=== PATIENT | female | born 1980 | race Caucasian/White ===

== ENCOUNTER 2016-08-17 16:32 | Emergency (ER) | payer OTHER ==
[~2016-08-17] VITALS: Ht 152.4 cm; Wt 88.0 kg
[~2016-08-17 16:32] MED LIST: HYDR-5688 PO
[2016-08-17 16:37] VITALS: Ht 152.4 cm; Wt 88.0 kg
[2016-08-17] MEDS ORDERED: ONDANSETRON INJ 2 MG/ML 2 ML VIAL IV STA (17:04)
[2016-08-17] MEDS ORDERED: KETOROLAC TROMETHAMINE 30 MG/ML VIAL IV STA (17:04)
[2016-08-17] MEDS ORDERED: SODIUM CHLORIDE 0.9% 1000ML 1,000 ML IV STA (17:04)
--- NOTE | 2016-08-17 17:34 | DIAGNOSTIC IMAGING REPORT ---
CHEST 2 VIEWS ROUTINE HISTORY: Cough, chest pain, dyspnea COMPARISON: Chest 01/09/2015. FINDINGS: The lungs are clear. Cardiac silhouette is normal in size. No pleural effusions. No pneumothorax. 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 IMPRESSION: No acute process. Electronically signed by: Shade Cordon M.D. 08/17/2016 5:33 PM Dictated Date/Time: 08/17/2016 5:32 PM
[2016-08-17] MEDS ORDERED: RANI300T PO (17:42)
[2016-08-17] MEDS ORDERED: ZLF/50 PO (17:42)
[2016-08-17] MEDS ORDERED: VST25HP PO (17:42)
[2016-08-17] MEDS ORDERED: OMEP40CA41 PO (17:42)
[2016-08-17] MEDS ORDERED: VNTHFA/IN PO (17:43)
[2016-08-17 17:48] LABS: BASO % 0.4 %; BASO ABS # 0.03 K/uL (0-0.2); COMPLETE YES; EOS % 2.2 %; HEMATOCRIT 37.3 % (37-47); IG% 1.2 %; LYMPH % 28.5 %; LYMPH ABS # 2.12 K/uL (1.2-3.4); MEAN CELL VOLUME 85.4 fL (80-100); MEAN CORPUSCULAR HEMOGLOBIN 31.4 pg (25-34); MEAN CORPUSCULAR HGB CONC 36.7 g/dl (32-36); MEAN PLATELET VOLUME 9.8 fL (7.4-10.4); MONO % 8.6 %; NEUT % 59.1 %; PLATELET COUNT 238 K/uL (130-400); RED BLOOD COUNT 4.37 M/uL (4.2-5.4); WHITE BLOOD COUNT 7.43 K/uL (4.8-10.8)
[2016-08-17 17:49] LABS: URINE APPEARANCE CLEAR (CLEAR); URINE BILIRUBIN NEG (NEG); URINE COLOR YELLOW; URINE NITRITE NEG (NEG); URINE SPECIFIC GRAVITY 1.011 (1.000-1.030); UROBILINOGEN NEG (NEG); ZZUR CULT IF INDIC CLEAN CATCH NO
[2016-08-17 17:51] LABS: MANUAL MICROSCOPIC REQUIRED? NO; REVIEW REQ? NO
[2016-08-17 18:03] LABS: ALT/SGPT 19 U/L (12-78); BLOOD UREA NITROGEN 8 mg/dl (7-18); CALCIUM 8.8 mg/dl (8.5-10.1); CARBON DIOXIDE 22 mmol/L (21-32); CHLORIDE 107 mmol/L (98-107); CREATININE 0.77 mg/dl (0.60-1.20); GLUCOSE 109 mg/dl (70-99); MAGNESIUM 1.9 mg/dl (1.8-2.4); POTASSIUM 3.9 mmol/L (3.5-5.1); SODIUM 139 mmol/L (136-145)
[2016-08-17 18:08] LABS: ALB/GLOB RATIO 1.1 (0.9-2); ALKALINE PHOSPHATASE 61 U/L (45-117); AST/SGOT 12 U/L (15-37)
[2016-08-17] MEDS ORDERED: ALBUTEROL HFA 8 GM INHALER INH STA (19:29)
--- NOTE | 2016-08-17 19:29 | EMERGENCY ROOM VISIT NOTE ---
History First contact with patient: 16:52 Chief Complaint: ILLNESS Stated Complaint: COUGH, SWEATS, CHEST TIGHTNESS, HEADACHE History of Present Illness The patient is a 35 year old female who presents to the Emergency Room via private vehicle with complaints of "cough, sweats, chest tightness, headache". The patient states that she vomited experienced a headache on Sunday of this past week, and then lost her voice on Sunday. She then states she developed a cough and then a headache on Sunday. She states that the cough, ache has progressed and she developed diarrhea yesterday and today. She states that she was seen at an urgent care yesterday and given an inhaler which is not helping. She states she cannot sleep. The patient does have associated chest discomfort which is worse with a cough and associated shortness of breath with the cough. She does have associated fevers, chills and does smoke. She denies any production to the cough, oral contraceptives or hormone use, heart history. Review of Systems A complete 10-point Review of Systems was discussed with the patient, with pertinent positives and negatives listed in the History of Present Illness. All remaining Review of Systems questions can be considered negative unless otherwise specified. Past Medical/Surgical History Medical Problems: (1) Kidney stone (2) Syncope (3) UTI (urinary tract infection) Family History No pertinent family history Heart disease, high blood pressure, cancer, lung disease, seizures Social History Smoking Status: Current Every Day Smoker Marital Status: single Housing Status: unknown Occupation Status: employed Current/Historical Medications Scheduled Omeprazole (Prilosec), 40 MG PO QAM Ranitidine Hcl (Zantac), 300 MG PO QPM Sertraline HCl (Sertraline HCl), 50 MG PO DAILY Scheduled PRN Albuterol Hfa (Ventolin Hfa), 2 PUFFS PO Q4 PRN for Shortness of Breath Hydroxyzine HCl (Hydroxyzine Pamoate), 25 MG PO DAILY PRN for Anxiety Allergies Coded Allergies: BEE STING (Unverified Allergy, Unknown, unknown, 08/17/16) Codeine (Verified Allergy, Unknown, 08/17/16) Physical Exam Vital Signs Date Time Temp Pulse Resp B/P Pulse Ox O2 Delivery O2 Flow Rate FiO2 08/17/16 20:16 37.0 81 18 134/92 96 08/17/16 19:07 37.0 08/17/16 19:07 37.0 08/17/16 17:48 81 18 134/92 96 Room Air 08/17/16 16:37 37.8 101 18 144/104 96 Room Air Physical Exam VITAL SIGNS - Vital signs and nursing notes were reviewed. Patient is afebrile , hypertensive 144/104, slightly tachycardic at 101 and is saturating well on room air 96%. GENERAL -35-year-old female appearing her stated age who is in no acute distress. Communicates well with provider and answers questions appropriately. SKIN - Without rashes. No petechial rashes. HEAD - NC/AT. EYES - Sclera anicteric. Palpebral conjunctiva pink and moist with no injection noted. EARS - No deformities of external structures noted on gross examination bilaterally. NOSE - Midline and without cyanosis. No epistaxis or purulent drainage noted. Septum midline without deviation or septal hematoma noted. MOUTH/OROPHARYNX - Without perioral cyanosis. Buccal mucosa pink and moist and without leukoplakia. Tongue midline with equal elevation of palate bilaterally. No tonsillar hypertrophy, erythema, or exudates noted. [] dentition noted. NECK - Neck with FROM. Supple to palpation. No lymphadenopathy noted. No nuchal rigidity. No meningismus or signs of encephalitis. LUNGS - Chest wall symmetric without accessory muscle use, intercostals retractions, or central cyanosis. Normal vesicular breath sounds CTA B/L. No rales, or rhonchi appreciated. Slight wheezing noted bilaterally. CARDIAC - RRR with S1/S2. No murmur, rubs, or gallops appreciated. ABDOMEN - Abdominal contour without pulsations or visible masses. BS normoactive all four quadrants. No tenderness, palpable masses, hepatosplenomegaly, or ascites noted. EXTREMITIES - No clubbing or peripheral cyanosis. No pretibial edema present. +5 /5 strength noted in UE/LE bilaterally. NEUROLOGIC - Cranial nerves II through XII grossly intact. Sensory intact to light touch throughout. PSYCH - Pt is very pleasant and interacts well with examiner. Medical Decision & Procedures ER Provider Diagnostic Interpretation: CHEST 2 VIEWS ROUTINE HISTORY: Cough, chest pain, dyspnea COMPARISON: Chest 01/09/2015. FINDINGS: The lungs are clear. Cardiac silhouette is normal in size. No pleural effusions. No pneumothorax. 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 IMPRESSION: No acute process. Electronically signed by: Shade Cordon M.D. 08/17/2016 5:33 PM Dictated Date/Time: 08/17/2016 5:32 PM Laboratory Results 08/17/16 17:25 Red Blood Count 4.37, Mean Corpuscular Volume 85.4, Mean Corpuscular Hemoglobin 31.4, Mean Corpuscular Hemoglobin Concent 36.7, Mean Platelet Volume 9.8, Neutrophils (%) (Auto) 59.1, Lymphocytes (%) (Auto) 28.5, Monocytes (%) (Auto) 8.6, Eosinophils (%) (Auto) 2.2, Basophils (%) (Auto) 0.4, Neutrophils # (Auto) 4.39, Lymphocytes # (Auto) 2.12, Monocytes # (Auto) 0.64, Eosinophils # (Auto) 0.16, Basophils # (Auto) 0.03 08/17/16 17:25 Test 08/17/16 17:25 08/17/16 17:28 08/17/16 17:31 08/17/16 17:35 White Blood Count 7.43 K/uL (4.8-10.8) Red Blood Count 4.37 M/uL (4.2-5.4) Hemoglobin 13.7 g/dL (12.0-16.0) Hematocrit 37.3 % (37-47) Mean Corpuscular Volume 85.4 fL (80-100) Mean Corpuscular Hemoglobin 31.4 pg (25-34) Mean Corpuscular Hemoglobin Concent 36.7 g/dl (32-36) Platelet Count 238 K/uL (130-400) Mean Platelet Volume 9.8 fL (7.4-10.4) Neutrophils (%) (Auto) 59.1 % Lymphocytes (%) (Auto) 28.5 % Monocytes (%) (Auto) 8.6 % Eosinophils (%) (Auto) 2.2 % Basophils (%) (Auto) 0.4 % Neutrophils # (Auto) 4.39 K/uL (1.4-6.5) Lymphocytes # (Auto) 2.12 K/uL (1.2-3.4) Monocytes # (Auto) 0.64 K/uL (0.11-0.59) Eosinophils # (Auto) 0.16 K/uL (0-0.5) Basophils # (Auto) 0.03 K/uL (0-0.2) RDW Standard Deviation 39.6 fL (36.4-46.3) RDW Coefficient of Variation 12.9 % (11.5-14.5) Immature Granulocyte % (Auto) 1.2 % Immature Granulocyte # (Auto) 0.09 K/uL (0.00-0.02) Anion Gap 10.0 mmol/L (3-11) Est Creatinine Clear Calc Drug Dose 101.6 ml/min Estimated GFR () 116.8 Estimated GFR (Non- 100.7 BUN/Creatinine Ratio 10.0 (10-20) Calcium Level 8.8 mg/dl (8.5-10.1) Magnesium Level 1.9 mg/dl (1.8-2.4) Total Bilirubin 0.3 mg/dl (0.2-1) Aspartate Amino Transf (AST/SGOT) 12 U/L (15-37) Alanine Aminotransferase (ALT/SGPT) 19 U/L (12-78) Alkaline Phosphatase 61 U/L (45-117) Troponin I < 0.015 ng/ml (0-0.045) Total Protein 7.3 gm/dl (6.4-8.2) Albumin 3.9 gm/dl (3.4-5.0) Globulin 3.4 gm/dl (2.5-4.0) Albumin/Globulin Ratio 1.1 (0.9-2) Monoscreen NEG (NEG) Urine Color YELLOW Urine Appearance CLEAR (CLEAR) Urine pH 5.0 (4.5-7.5) Urine Specific [place] 1.011 (1.000-1.030) Urine Protein NEG (NEG) Urine Glucose (UA) NEG (NEG) Urine Ketones NEG (NEG) Urine Occult Blood NEG (NEG) Urine Nitrite NEG (NEG) Urine Bilirubin NEG (NEG) Urine Urobilinogen NEG (NEG) Urine Leukocyte Esterase NEG (NEG) Influenza Type A Antigen Neg for Influ A (NEG) Influenza Type B Antigen Neg for Influ B (NEG) Medications Administered Medications (Trade) Dose Ordered Sig/Van Route Start Time Stop Time Status Last Admin Dose Admin Sodium Chloride (Nss 1000ml) 1,000 ml @ 999 mls/hr Q1H1M STAT IV 08/17/16 17:04 08/17/16 18:04 DC 08/17/16 17:04 999 MLS/HR Ketorolac Tromethamine (Toradol Inj) 30 mg NOW STAT IV 08/17/16 17:04 08/17/16 17:07 DC 08/17/16 17:54 30 MG Ondansetron HCl (Zofran Inj) 4 mg NOW STAT IV 08/17/16 17:04 08/17/16 17:07 DC 08/17/16 17:54 4 MG Albuterol (Ventolin Hfa Inhaler) 2 puffs ONE STAT INH 08/17/16 19:29 08/17/16 19:30 DC 08/17/16 19:57 2 PUFFS Medical Decision Patient was seen and evaluated as above. After obtaining a thorough history and physical examination IV access was initiated, and the above workup was completed. The patient presents with signs and symptoms suggestive of an acute viral illness. She does not have any examination findings to support meningitis or encephalitis. She is nontoxic in appearance. Chest x-ray is unremarkable for acute process. CBC reveals no leukocytosis or anemia. CMP reveals normal electrolytes, normal kidney function, slight decrease in AST at 12, negative troponin. Urine unremarkable. Patient negative for mono screen and influenza. An EKG was obtained because the patient did note chest tightness for the past few days, which revealed a normal sinus rhythm, rate of 92 bpm. This EKG does not reveal any ectopy or ischemic change, and when compared with EKG of 05/14/2016, no significant change was found. She was given 30 mg of Toradol IV for her pain and was hydrated with 1 L of normal saline. Rapid strep negative. She was reevaluated and noted to be feeling slightly better but still had an occipital headache. There was no nuchal rigidity. I do suspect that the patient again has a viral illness. Given no leukocytosis, no sign of meningitis or encephalitis and symptoms and signs suggestive of viral process that is acute in nature I do believe the patient is stable for discharge. She will be provided with a new HFA inhaler as well as aerospace chamber and was educated up on use. She was instructed to follow-up with her family doctor regarding today's visit. She seemed happy with plan of care, was educated upon worrisome symptoms which to return, was educated upon management of today's findings, had questions answered prior to discharge, and was discharged home in good condition. In the evaluation and treatment of this patient the following differential diagnoses were entertained: Strep pharyngitis, viral URI, pneumonia, bronchitis , meningitis, encephalitis, among others. Impression Primary Impression: Viral URI with cough Departure Information Dispostion Home / Self-Care Condition GOOD Referrals Brandon Oliver M.D. (PCP) Patient Instructions My [facility] Additional Instructions You were seen in the emergency department for your sore throat, cough, chest congestion and diarrhea. The results of your rapid strep screen were found to be negative. You will be contacted in 48-72 hrs if the results of your culture are found to be positive and any change in antibiotics is necessary. You have been prescribed a Ventolin inhaler. Please use 1-2 puffs every 6 hours for the next few days, and then as needed for cough. For pain and fever control, you can use the following [id number] medicines (if >12 yo): - Regular strength (325mg/tab) Tylenol (acetaminophen) 2 tabs every 4-6 hours as needed. Do not exceed 12 tablets in a 24 hour period. Avoid taking more than 4 grams (4000 mg) of Tylenol per day. This includes any other sources of acetaminophen you may take on a regular basis. - Regular strength (200 mg/tab) Advil (ibuprofen) 1-2 tabs every 4-6 hours as needed. Do not exceed a dose of 3200 mg per day. - For best results, alternate dosing of Tylenol and Advil. In addition to your prescribed medications, you can also use the following home remedies: - Warm salt-water gargles 3 times per day can soothe your throat and help to fight infection. - Warm tea with honey can soothe your throat. You may discontinue the inhaler your provided, and begin the new one With the aerospace chamber. Return to the emergency department if your symptoms persist or worsen over the next 2-3 days despite treatment course outlined above. Return to the emergency department if you develop the following symptoms of: inability to swallow solids , liquids, or drool; excessive wheezing or inability to catch your breath; or intractable fever or pain. Follow up with your primary care provider in 2-3 days from today's emergency department visit. Please return to the emergency department with any new/concerning symptoms.
[2016-08-17 20:16] VITALS: BP 134/92; PULSE 81; TEMP 37; O2SAT 96
== END 2016-08-17 20:00 | disposition home or self-care (01) ==
LOC: C.EDB 16:33
DX: J06.9 Acute upper respiratory infection, unspecified (principal); R05 Cough; F17.200 Nicotine dependence, unspecified, uncomplicated; Z82.49 Family history of ischemic heart disease and other diseases of the circulatory system; Z82.0 Family history of epilepsy and other diseases of the nervous system

== ENCOUNTER → 2016-12-20 | Outpatient (CLI) | payer OTHER ==
[~2016-12-20] MED LIST changes: -HYDR-5688 PO; +OMEP40CA41 PO; +RANI300T PO; +VNTHFA/IN PO; +VST25HP PO; +ZLF/50 PO
--- NOTE | 2016-12-20 10:12 | DIAGNOSTIC IMAGING REPORT ---
LEFT ANKLE MIN 3 VIEWS ROUTINE, LEFT FOOT MIN 3 VIEWS ROUTINE HISTORY: 35 years Female LEFT FOOT AND ANKLE PAIN COMPARISON: None available TECHNIQUE: 3 views of the left ankle and 3 views of the left foot FINDINGS: ANKLE: Ankle mortise is well maintained and anatomically positioned. Talar dome is smooth without osteochondral defect. Note is made of an os trigonum. There is mild ankle soft tissue swelling. FOOT: Mild hallux valgus deformity is noted with peripherally sclerotic foci seen along the medial aspect of the first metatarsal head measuring up to 4 mm. There is no acute fracture or dislocation. 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 IMPRESSION: 1. No acute fracture or dislocation of the left foot or ankle. 2. Hallux valgus deformity with adjacent sclerotic bony foci suggesting accessory ossicles or fragment osteophytes. 3. Mild soft tissue swelling about the ankle. The above report was generated using voice recognition software. It may contain grammatical, syntax or spelling errors. Electronically signed by: Mikey Hurley M.D. 12/20/2016 10:11 AM Dictated Date/Time: 12/20/2016 10:07 AM
== END | disposition home or self-care (01) ==
LOC: C.RAD1850 09:53
PROVIDERS: ATTEND Nurse Practitioner Family
DX: M79.672 Pain in left foot (principal); M25.572 Pain in left ankle and joints of left foot

== ENCOUNTER → 2016-12-29 | Outpatient (CLI) | payer OTHER ==
--- NOTE | 2016-12-29 16:05 | DIAGNOSTIC IMAGING REPORT ---
CT OF THE LEFT FOOT AND ANKLE WITHOUT CONTRAST CLINICAL HISTORY: Persistent left foot and ankle pain and swelling following injury. COMPARISON STUDY: Left ankle and left foot radiographs December 20, 2016. TECHNIQUE: Axial images of the left ankle and foot were obtained without IV contrast. Sagittal and coronal reconstructions were viewed. FINDINGS: The tarsometatarsal joints are intact. Alignment of the left foot and left ankle is anatomic with the exception of hallux valgus deformity. No acute fracture is identified within the left ankle or foot by CT. A few small well-corticated ossific/calcific densities along the medial aspect of the left first metatarsophalangeal joint are chronic. There is soft tissue swelling of the left ankle and foot. Talar dome is intact. There is minimal posterior calcaneal spurring. An os trigonum is noted. IMPRESSION: 1. No acute fracture within the left ankle or foot. 2. Mild subcutaneous edema of the left ankle and left hindfoot. 3. Mild hallux valgus deformity. Electronically signed by: Reg Siegel M.D. 12/29/2016 4:04 PM Dictated Date/Time: 12/29/2016 3:21 PM
== END | disposition home or self-care (01) ==
LOC: C.CTS 15:09
PROVIDERS: ATTEND Nurse Practitioner Family
DX: M25.572 Pain in left ankle and joints of left foot (principal); M20.12 Hallux valgus (acquired), left foot

== ENCOUNTER 2017-04-03 10:41 | Emergency (ER) | payer OTHER ==
[~2017-04-03] VITALS: Ht 162.6 cm; Wt 93.1 kg
[2017-04-03 10:42] VITALS: TEMP 36.6; Ht 162.6 cm; Wt 93.1 kg
[2017-04-03] MEDS ORDERED: KETOROLAC TROMETHAMINE 30 MG/ML VIAL IV STA (11:34)
[2017-04-03 11:48] VITALS: O2SAT 97
[2017-04-03 11:53] LABS: BASO % 0.2 %; BASO ABS # 0.02 K/uL (0-0.2); COMPLETE YES; EOS % 1.4 %; HEMATOCRIT 36.9 % (37-47); IG% 0.9 %; LYMPH % 34.9 %; LYMPH ABS # 3.08 K/uL (1.2-3.4); MEAN CELL VOLUME 85.6 fL (80-100); MEAN CORPUSCULAR HEMOGLOBIN 30.6 pg (25-34); MEAN CORPUSCULAR HGB CONC 35.8 g/dl (32-36); MEAN PLATELET VOLUME 9.7 fL (7.4-10.4); MONO % 5.4 %; NEUT % 57.2 %; PLATELET COUNT 250 K/uL (130-400); RED BLOOD COUNT 4.31 M/uL (4.2-5.4); WHITE BLOOD COUNT 8.83 K/uL (4.8-10.8)
[2017-04-03] MEDS ORDERED: IBUP-103 PO (12:03)
[2017-04-03 12:11] LABS: ALT/SGPT 20 U/L (12-78); AST/SGOT 9 U/L (15-37); BLOOD UREA NITROGEN 12 mg/dl (7-18); BUN/CREATININE RATIO 17.6 (10-20); CALCIUM 8.4 mg/dl (8.5-10.1); CARBON DIOXIDE 26 mmol/L (21-32); CHLORIDE 107 mmol/L (98-107); CREATININE 0.71 mg/dl (0.60-1.20); GLUCOSE 94 mg/dl (70-99); POTASSIUM 4.2 mmol/L (3.5-5.1); SODIUM 139 mmol/L (136-145)
--- NOTE | 2017-04-03 12:12 | DIAGNOSTIC IMAGING REPORT ---
CHEST ONE VIEW PORTABLE CLINICAL HISTORY: CHEST PAIN dyspnea COMPARISON STUDY: 08/17/2016 FINDINGS: The bones soft tissues and hemidiaphragms are normal. The cardiomediastinal silhouette is normal. The lungs are clear. The pulmonary vasculature is normal. IMPRESSION: Negative chest. The above report was generated using voice recognition software. It may contain grammatical, syntax or spelling errors. Electronically signed by: Albaro Franz M.D. 04/03/2017 12:11 PM Dictated Date/Time: 04/03/2017 12:11 PM
[2017-04-03 12:16] LABS: ALKALINE PHOSPHATASE 55 U/L (45-117)
[2017-04-03 12:22] LABS: PARTIAL THROMBOPLASTIN RATIO 1.1; PROTHROMBIN TIME (PATIENT) 10.3 SECONDS (9.0-12.0)
[2017-04-03] MEDS ORDERED: PROCHLORPERAZINE 5 MG/ML 2 ML VIAL IV STA (12:30)
[2017-04-03] MEDS ORDERED: MoRPHine SULFATE 4 MG/ML 1 ML CARP\\VIAL IV STA (12:30)
--- NOTE | 2017-04-03 13:36 | EMERGENCY ROOM VISIT NOTE ---
History First contact with patient: 11:07 Chief Complaint: HEADACHE Stated Complaint: SEVERE HEADACHE X 2-3 DAYS, CHEST/ABD. PAIN History of Present Illness The patient is a 36 year old female who presents to the Emergency Room with complaints of multiple symptoms, including headache, chest pain, abdominal pain and elevated blood pressure. The patient believes that her symptoms are secondary to stress. She does report a history of migraines, and reports that this does not feel like a migraine headache except that she is photophobic today as well. The patient does report a history of GERD, but reports that her symptoms are usually different. 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 This was when she lived in [place]. The patient was on seizure medicine for a few years, then was discontinued. The patient has not noticed any focal weakness, difficulty with speech or swallowing. She denies any other recent infections, sore throat, runny nose, sinus congestion, backache, muscle aches, urinary symptoms or diarrhea. PCP is Dr. Oliver. She rates her overall discomfort a 10 out of 10. Review of Systems HEENT: Denies dizziness, visual problems, hearing loss, tinnitus. Denies difficulty swallowing or oral lesions. PULMONARY: Denies cough, shortness of breath, sputum production or hemoptysis. CARDIOVASCULAR: Denies palpitations, dyspnea on exertion, orthopnea or peripheral edema. Otherwise see history of present illness. GASTROINTESTINAL: Denies diarrhea, constipation, nausea, vomiting, or abdominal pain. GENITOURINARY: Denies dysuria, frequency, urgency or nocturia. NEUROLOGIC: History of epilepsy and CVA, along with chronic migraine headaches. MUSCULOSKELETAL: Denies history of joint tenderness/swelling. SKIN: Denies rashes or lesions. PSYCHIATRIC: Denies history of depression or mental illness. ENDOCRINE: Denies history of diabetes or thyroid disorders. Past Medical/Surgical History Medical Problems: (1) Bronchitis Nos (2) GERD (gastroesophageal reflux disease) (3) Kidney stone (4) Nicotine Dependence, Cigarettes, Uncomplicated (5) Pneumonia (6) Syncope (7) UTI (urinary tract infection) Surgical Problems: (1) History of dilatation and curettage (2) History of hernia repair (3) History of partial hysterectomy Family History No pertinent family history Social History Smoking Status: Former Smoker Alcohol Use: none Drug Use: none Marital Status: single Housing Status: lives with friends Occupation Status: employed Current/Historical Medications Scheduled Omeprazole (Prilosec), 40 MG PO QAM Ranitidine Hcl (Zantac), 300 MG PO QPM Sertraline HCl (Sertraline HCl), 50 MG PO DAILY Scheduled PRN Albuterol Hfa (Ventolin Hfa), 2 PUFFS PO Q4 PRN for Shortness of Breath Hydroxyzine HCl (Hydroxyzine Pamoate), 25 MG PO DAILY PRN for Anxiety Miscellaneous Medications Ibuprofen Tab (Advil), 200 MG PO Physical Exam Vital Signs Date Time Temp Pulse Resp B/P (MAP) Pulse Ox O2 Delivery O2 Flow Rate FiO2 04/03/17 13:23 70 20 120/88 96 Room Air 04/03/17 12:57 77 20 136/96 95 04/03/17 12:22 72 04/03/17 11:50 71 20 139/87 98 04/03/17 11:48 97 Room Air 04/03/17 10:42 36.6 77 18 152/103 97 Room Air Physical Exam CONSTITUTIONAL: Healthy and well nourished. Alert and oriented X 3 with positive affect. Patient does not appear in any acute distress on my exam. HEENT: Normocephalic, atraumatic. Pupils equal, round and reactive. The patient is photophobic, precluding funduscopic exam. Ears and nares are otherwise clear. No tenderness to palpation or percussion of the frontal or maxillary sinuses. NECK: Full active range of motion without discomfort. No nuchal rigidity. No JVD or carotid bruits. LYMPHATICS: No cervical chain adenopathy. RESPIRATORY: Clear to auscultation bilaterally with no wheezing, crackles, rhonchi or stridor. CARDIOVASCULAR: Regular rate and rhythm with no murmurs, rubs or gallops. GASTROINTESTINAL: Bowel sounds present in all quadrants. Patient has mild generalized tenderness to palpation of the epigastric and upper abdominal region. Negative CVA tenderness. Negative McBurney's point tenderness. No focal left lower quadrant tenderness to palpation. No abdominal rigidity, guarding or rebound. MUSCULOSKELETAL: Full range of motion of all joints without discomfort. 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 Ankle plantar/dorsiflexion strength is 5 out of 5 and symmetric bilaterally. INTEGUMENTARY: No rash or other significant dermatologic conditions noted. HEMATOLOGIC: No ecchymosis or petechiae. NEUROLOGIC: No focal neurologic deficits noted. Upper and lower extremities are sensory intact. Negative pronator drift. No ataxia with ambulation to her exam room. Medical Decision & Procedures ER Provider Diagnostic Interpretation: My interpretation of an ECG shows a normal sinus rhythm without ST elevation or other conduction abnormality. My interpretation of a portable chest x-ray does not show any consolidations or pneumothorax. Radiologist report is as follows: CHEST ONE VIEW PORTABLE CLINICAL HISTORY: CHEST PAIN dyspnea COMPARISON STUDY: 08/17/2016 FINDINGS: The bones soft tissues and hemidiaphragms are normal. The cardiomediastinal silhouette is normal. The lungs are clear. The pulmonary vasculature is normal. IMPRESSION: Negative chest. Laboratory Results 04/03/17 11:40 Red Blood Count 4.31, Mean Corpuscular Volume 85.6, Mean Corpuscular Hemoglobin 30.6, Mean Corpuscular Hemoglobin Concent 35.8, Mean Platelet Volume 9.7, Neutrophils (%) (Auto) 57.2, Lymphocytes (%) (Auto) 34.9, Monocytes (%) (Auto) 5.4, Eosinophils (%) (Auto) 1.4, Basophils (%) (Auto) 0.2, Neutrophils # (Auto) 5.05, Lymphocytes # (Auto) 3.08, Monocytes # (Auto) 0.48, Eosinophils # (Auto) 0.12, Basophils # (Auto) 0.02 04/03/17 11:40 Test 04/03/17 11:40 White Blood Count 8.83 K/uL (4.8-10.8) Red Blood Count 4.31 M/uL (4.2-5.4) Hemoglobin 13.2 g/dL (12.0-16.0) Hematocrit 36.9 % (37-47) Mean Corpuscular Volume 85.6 fL (80-100) Mean Corpuscular Hemoglobin 30.6 pg (25-34) Mean Corpuscular Hemoglobin Concent 35.8 g/dl (32-36) Platelet Count 250 K/uL (130-400) Mean Platelet Volume 9.7 fL (7.4-10.4) Neutrophils (%) (Auto) 57.2 % Lymphocytes (%) (Auto) 34.9 % Monocytes (%) (Auto) 5.4 % Eosinophils (%) (Auto) 1.4 % Basophils (%) (Auto) 0.2 % Neutrophils # (Auto) 5.05 K/uL (1.4-6.5) Lymphocytes # (Auto) 3.08 K/uL (1.2-3.4) Monocytes # (Auto) 0.48 K/uL (0.11-0.59) Eosinophils # (Auto) 0.12 K/uL (0-0.5) Basophils # (Auto) 0.02 K/uL (0-0.2) RDW Standard Deviation 40.2 fL (36.4-46.3) RDW Coefficient of Variation 13.0 % (11.5-14.5) Immature Granulocyte % (Auto) 0.9 % Immature Granulocyte # (Auto) 0.08 K/uL (0.00-0.02) Prothrombin Time 10.3 SECONDS (9.0-12.0) Prothromb Time International Ratio 1.0 (0.9-1.1) Activated Partial Thromboplast Time 28.4 SECONDS (21.0-31.0) Partial Thromboplastin Ratio 1.1 D-Dimer 210 ug/L FEU (0-500) Anion Gap 6.0 mmol/L (3-11) Est Creatinine Clear Calc Drug Dose 122.4 ml/min Estimated GFR () 127.9 Estimated GFR (Non- 110.4 BUN/Creatinine Ratio 17.6 (10-20) Calcium Level 8.4 mg/dl (8.5-10.1) Total Bilirubin 0.7 mg/dl (0.2-1) Direct Bilirubin 0.2 mg/dl (0-0.2) Aspartate Amino Transf (AST/SGOT) 9 U/L (15-37) Alanine Aminotransferase (ALT/SGPT) 20 U/L (12-78) Alkaline Phosphatase 55 U/L (45-117) Troponin I < 0.015 ng/ml (0-0.045) Total Protein 7.1 gm/dl (6.4-8.2) Albumin 3.6 gm/dl (3.4-5.0) Lipase 148 U/L (73-393) The above labs were reviewed and are grossly normal. CBC, partial renal profile , LFTs, lipase, d-dimer and troponin are normal. Medications Administered Medications (Trade) Dose Ordered Sig/Van Route Start Time Stop Time Status Last Admin Dose Admin Ketorolac Tromethamine (Toradol Inj) 30 mg NOW STAT IV 04/03/17 11:34 04/03/17 11:36 DC 04/03/17 11:47 30 MG Prochlorperazine Edisylate (Compazine Inj) 10 mg NOW STAT IV 04/03/17 12:30 04/03/17 12:31 DC 04/03/17 12:42 10 MG Morphine Sulfate (MoRPHine SULFATE INJ) 4 mg NOW STAT IV 04/03/17 12:30 04/03/17 12:31 DC 04/03/17 12:42 4 MG ED Course Patient history and physical exam were performed. Nurse's notes were reviewed. Vital signs were reviewed, showing an elevated blood pressure of 152/103. The patient is otherwise not hypoxic or tachycardic. She is afebrile as well. IV access was established, and labs were drawn. The patient was administered Toradol 30 mg IVP for her headache. ECG and portable chest x-ray were normal. Review of labs showed no acute findings. The patient reported that the Toradol did not help with her headache. She was therefore administered morphine 4 mg and Compazine 10 mg IVP. This reduced her headache to a 3 out of 10, and the patient felt well enough for discharge. Patient was instructed to follow-up with her PCP within the next 2-3 days for recheck. Return to the emergency department sooner for any progressively worsening symptoms. She was happy with plan of care, and voiced understanding of all discharge instructions. It is noted that the patient's blood pressure did improve throughout her emergency department evaluation, therefore the elevated blood pressure was likely situational. I did encourage the patient to have her blood pressure rechecked by her family doctor. Medical Decision The patient presents to the emergency department with multiple vague symptoms with primary complaint of a headache. The patient reports a history of migraines, and reports that this feels a little different. She is photophobic, which still is suggestive of a migrainous etiology. She also complains of mild chest and abdominal pain. Her laboratory studies today are not suggestive of myocardial infarction, pneumonia, pneumothorax, pancreatitis, hepatitis or cholecystitis. I do not suspect aortic dissection, bowel obstruction myocarditis, pericarditis or esophageal spasm. Her clinical exam is not consistent with meningitis or CVA. I do feel that the patient is safe for outpatient management. [place] Drug Monitoring Program Search Results: patient reviewed within database, no issues identified Head Trauma GCS Score: 15 Medication Reconcilliation Current Medication List: was personally reviewed by me Blood Pressure Screening Patient's blood pressure: Elevated blood pressure Blood pressure disposition: Elevated BP felt to be situational Impression Primary Impression: Headache Additional Impressions: Chest pain Abdominal pain Elevated blood pressure reading Departure Information Referrals Brandon Oliver M.D. (PCP) Patient Instructions My [facility] Problem Qualifiers Primary Impression: Headache Headache type: unspecified Headache chronicity pattern: acute headache Intractability: not intractable Qualified Codes: R51 - Headache Additional Impressions: Chest pain Chest pain type: unspecified Qualified Codes: R07.9 - Chest pain, unspecified Abdominal pain Abdominal location: upper abdomen, unspecified Qualified Codes: R10.10 - Upper abdominal pain, unspecified
[2017-04-03 14:02] VITALS: BP 108/78; PULSE 73; O2SAT 96
== END 2017-04-03 14:14 | disposition home or self-care (01) ==
LOC: C.EDB 10:43 → C.EDC 14:14
DX: R51 Headache (principal); R07.9 Chest pain, unspecified; R10.9 Unspecified abdominal pain; R03.0 Elevated blood-pressure reading, without diagnosis of hypertension; K21.9 Gastro-esophageal reflux disease without esophagitis; Z87.440 Personal history of urinary (tract) infections; Z87.442 Personal history of urinary calculi; Z87.891 Personal history of nicotine dependence; Z90.710 Acquired absence of both cervix and uterus; Z98.890 Other specified postprocedural states; Z79.899 Other long term (current) drug therapy

== ENCOUNTER 2017-04-24 09:41 | Emergency (ER) | payer OTHER ==
[~2017-04-24] VITALS: Ht 154.9 cm; Wt 90.8 kg
[~2017-04-24 09:41] MED LIST changes: +IBUP-103 PO
[2017-04-24 09:42] VITALS: Ht 154.9 cm; Wt 90.8 kg
[2017-04-24] MEDS ORDERED: IBUPROFEN 600 MG TAB PO STA (09:59)
--- NOTE | 2017-04-24 10:19 | EMERGENCY ROOM VISIT NOTE ---
ED Visit Note First contact with patient: 09:48 CHIEF COMPLAINT: right ankle, foot, lateral lower leg pain HISTORY OF PRESENT ILLNESS: This 36-year-old female patient presents to the emergency department, complaining of severe right ankle, foot, and lower leg pain. She states a few months ago (in January), she did have an injury when she caught her ankle stuck between a [place] lift and the patient's wheelchair while she worked in a [place]. She states she saw the worker's comp physicians who diagnosed her with a contusion. She states the past 2 days, she has been experiencing increased swelling and pain, which is worse with any pressure on the foot or weightbearing. She describes the pain as pins and needles and rates it 10/10. The patient has taken only Tylenol intermittently for her symptoms, but has not taken any anti-inflammatory medications. She states there has been no discoloration. The patient has been wearing an elastic brace which she had at home, using ice, trying to keep the leg elevated, and has been trying to rest. The patient complains of pain along the outside of the ankle, radiating through the entire foot, and up the lateral leg towards the knee. The patient is able to bear weight on the foot, but this causes extreme discomfort. Constant pain, worse with movement, weight bearing, and the dependent position. No specific knee pain, the patient is able to move their toes. No numbness or weakness of the foot, no laceration. The patient has not had a previous fracture to this ankle. The patient denies any injury and states the symptoms this time began spontaneously. She has had no symptoms up until this point. REVIEW OF SYSTEMS: A 6 system review of systems was completed with positives and pertinent negatives listed in the HPI. ALLERGIES: Bee sting, codeine MEDICATIONS: Zantac, Prilosec, Tylenol, Ventolin PMH: GERD SOCIAL HISTORY: The patient lives locally with family. She denies drug, alcohol , tobacco use. PHYSICAL EXAM: Vital Signs: Reviewed Nurse's notes, vital signs stable. GENERAL : Is a 36-year-old white female, no acute distress, well-developed, well- nourished. MENTAL STATUS: Alert, oriented to person place and time, and cooperative. MUSCULOSKELETAL: The right ankle is swollen and tender over the lateral malleolus, but the skin is intact and there is no ligamentous instability. There is fifth metatarsal tenderness. There is tenderness over the rest of the foot. There is fibular tenderness radiating up the leg. There is no visual deformity. No discoloration. The foot and toes are warm and well- perfused. Dorsalis pedis pulse 2+. Sensation to pain and light touch is intact. Capillary refill less than 2 seconds. RADIOLOGY: X-Ray Right Foot: RIGHT FOOT 3 VIEWS HISTORY: right foot pain/swelling COMPARISON: None. FINDINGS: There is no fracture or dislocation. Dorsal soft tissue swelling within the forefoot. No radiopaque foreign bodies. IMPRESSION: No fractures. Electronically signed by: Shade Cordon M.D. 04/24/2017 10:56 AM Dictated Date/Time: 04/24/2017 10:55 AM X-Ray Right Ankle: RIGHT ANKLE 3 VIEWS CLINICAL HISTORY: Lateral ankle pain and swelling. FINDINGS: 3 views of the right ankle are obtained. No prior studies are available for comparison at the time of dictation. The skeletal structures are well mineralized. No fracture is seen. The ankle mortise is intact. An os trigonum is incidentally noted. There is no joint effusion. Soft tissue swelling is present around the ankle. IMPRESSION: Soft tissue swelling with no radiographic evidence of right ankle fracture. Electronically signed by: Neville Villareal M.D. 04/24/2017 10:54 AM Dictated Date/Time: 04/24/2017 10:53 AM X-Ray Right Tib/Fib: RIGHT TIBIA AND FIBULA 2 VIEWS CLINICAL HISTORY: Right leg injury. FINDINGS: AP and lateral views of the right tibia and fibula are obtained. No prior studies are available for comparison at the time of dictation. The skeletal structures are well mineralized. No tibial or fibular fracture is seen. The knee and ankle joints appear maintained. Soft tissue swelling is present in the calf. IMPRESSION: Mild soft tissue swelling with no radiographic evidence of right tibial or fibular fracture. Electronically signed by: Neville Villareal M.D. 04/24/2017 10:58 AM Dictated Date/Time: 04/24/2017 10:57 AM EMERGENCY DEPARTMENT COURSE: I examined the patient. She was extremely tender on examination over the entire ankle, foot, lower leg, and toes. The patient was given 600 mg ibuprofen for pain/inflammation and did note improvement in symptoms. X-rays of the ankle, tib-fib, and foot were reviewed by myself and read by radiology and reveal soft tissue swelling, but no acute fracture. I reviewed the findings with Dr. Denney, who agrees to treat the symptoms as an ankle sprain. The patient states she was recently on prednisone, and while she does not recall a sprain or injury, I suspect she had an injury to the ankle while taking prednisone and did not realize the swelling previously. A gel ankle splint was applied to the ankle under my direction and the position was satisfactory. Neurovascular status was rechecked and intact. The patient was instructed on the use of crutches. The patient was discharged home in good condition. DIFFERENTIAL DIAGNOSIS: Sprain, strain, tendonitis, fracture, DVT, cellulitis, abscess, malignancy, and others. DIAGNOSIS: right ankle sprain Problem List Medical Problems: (1) Kidney stone Status: Resolved (2) Syncope Status: Resolved (3) UTI (urinary tract infection) Status: Resolved Current/Historical Medications Scheduled Omeprazole (Prilosec), 40 MG PO QAM Ranitidine Hcl (Zantac), 300 MG PO QPM Sertraline HCl (Sertraline HCl), 50 MG PO DAILY Scheduled PRN Albuterol Hfa (Ventolin Hfa), 2 PUFFS PO Q4 PRN for Shortness of Breath Hydroxyzine HCl (Hydroxyzine Pamoate), 25 MG PO DAILY PRN for Anxiety Miscellaneous Medications Ibuprofen Tab (Advil), 200 MG PO Allergies Coded Allergies: BEE STING (Unverified Allergy, Unknown, unknown, 04/03/17) Codeine (Verified Allergy, Unknown, 04/03/17) Vital Signs Date Time Temp Pulse Resp B/P (MAP) Pulse Ox O2 Delivery O2 Flow Rate FiO2 04/24/17 09:42 36.5 81 18 123/85 95 Room Air Medications Administered Medications (Trade) Dose Ordered Sig/Van Route Start Time Stop Time Status Last Admin Dose Admin Ibuprofen (Motrin Tab) 600 mg NOW STAT PO 04/24/17 09:59 04/24/17 10:01 DC 04/24/17 10:07 600 MG Departure Information Impression Primary Impression: Right ankle sprain Dispostion Home / Self-Care Condition GOOD Referrals No Doctor, Assigned (PCP) Brandon Oliver M.D. Patient Instructions ED Sprain Ankle, My [facility] Additional Instructions ORTHOPEDIC INSTRUCTIONS: Ibuprofen(Motrin, Advil) may be used for fever or pain. Use 600mg every six hours as needed. Take with food. Avoid using more than 2400mg in a 24 hour period. Do not use 2400mg per day for more than three consecutive days without physician direction. Prolonged inappropriate use can lead to stomach upset or ulcers. (AND/OR) Acetaminophen(Tylenol) may be used for fever or pain. Use 1000mg every six hours as needed. Avoid using more than 3000mg in a 24 hour period. Ice compresses for 20 minutes at a time four times daily for 2-3 days. Use the crutches as instructed. Rest and elevate your injury. Wear the gel splint for comfort and to provide compression to the ankle. You may remove it to shower and bathe. Return to the ER immediately for any numbness, tingling, severe pain, extreme swelling in the extremity, discoloration, fever, or as needed. Call [facility], [phone], if no improvement in 1 week to arrange follow up for your injury. Follow-up with your primary care physician in 2 to 3 days for a recheck of your current condition. Problem Qualifiers Primary Impression: Right ankle sprain Encounter type: initial encounter Involved ligament of ankle: unspecified ligament Qualified Codes: S93.401A - Sprain of unspecified ligament of right ankle, initial encounter
--- NOTE | 2017-04-24 10:55 | DIAGNOSTIC IMAGING REPORT ---
RIGHT ANKLE 3 VIEWS CLINICAL HISTORY: Lateral ankle pain and swelling. FINDINGS: 3 views of the right ankle are obtained. No prior studies are available for comparison at the time of dictation. The skeletal structures are well mineralized. No fracture is seen. The ankle mortise is intact. An os trigonum is incidentally noted. There is no joint effusion. Soft tissue swelling is present around the ankle. IMPRESSION: Soft tissue swelling with no radiographic evidence of right ankle fracture. Electronically signed by: Neville Villareal M.D. 04/24/2017 10:54 AM Dictated Date/Time: 04/24/2017 10:53 AM
--- NOTE | 2017-04-24 10:58 | DIAGNOSTIC IMAGING REPORT ---
RIGHT FOOT 3 VIEWS HISTORY: right foot pain/swelling COMPARISON: None. FINDINGS: There is no fracture or dislocation. Dorsal soft tissue swelling within the forefoot. No radiopaque foreign bodies. IMPRESSION: No fractures. Electronically signed by: Shade Cordon M.D. 04/24/2017 10:56 AM Dictated Date/Time: 04/24/2017 10:55 AM
--- NOTE | 2017-04-24 10:59 | DIAGNOSTIC IMAGING REPORT ---
RIGHT TIBIA AND FIBULA 2 VIEWS CLINICAL HISTORY: Right leg injury. FINDINGS: AP and lateral views of the right tibia and fibula are obtained. No prior studies are available for comparison at the time of dictation. The skeletal structures are well mineralized. No tibial or fibular fracture is seen. The knee and ankle joints appear maintained. Soft tissue swelling is present in the calf. IMPRESSION: Mild soft tissue swelling with no radiographic evidence of right tibial or fibular fracture. Electronically signed by: Neville Villareal M.D. 04/24/2017 10:58 AM Dictated Date/Time: 04/24/2017 10:57 AM
[2017-04-24 11:36] VITALS: BP 115/84; PULSE 62; TEMP 36.5; O2SAT 92
== END 2017-04-24 11:37 | disposition home or self-care (01) ==
LOC: C.EDB 09:43 → C.EDA 11:37
DX: S93.401A Sprain of unspecified ligament of right ankle, initial encounter (principal); W22.8XXA Striking against or struck by other objects, initial encounter; K21.9 Gastro-esophageal reflux disease without esophagitis; Z79.899 Other long term (current) drug therapy; Z87.440 Personal history of urinary (tract) infections; Z87.442 Personal history of urinary calculi; Z88.5 Allergy status to narcotic agent; Z91.030 Bee allergy status

== ENCOUNTER 2017-08-19 19:56 | Emergency (ER) | payer OTHER ==
[~2017-08-19] VITALS: Ht 154.9 cm; Wt 84.8 kg
[2017-08-19 20:00] VITALS: TEMP 36.6; Ht 154.9 cm; Wt 84.8 kg
[2017-08-19] MEDS ORDERED: IBUP200C11 PO (20:54)
--- NOTE | 2017-08-19 20:54 | EMERGENCY ROOM VISIT NOTE ---
ED Visit Note First contact with patient: 20:08 CHIEF COMPLAINT: Shoulder injury HISTORY OF PRESENT ILLNESS: This patient is a 36-year-old female that presents to the emergency department with an injury to her right shoulder that occurred at work today. 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 The patient reports hearing a "pop." She has not taken anything for pain. She denies any numbness or tingling into her arm or hand. She is experiencing pain into the right mid back. She denies any weakness. No prior injuries to the shoulder. REVIEW OF SYSTEMS: 6 system review negative. Please see pertinent positives in the history of present illness section. PMH: Otherwise healthy SOCIAL HISTORY: Patient lives at home. Non-smoker, no excessive alcohol use. PHYSICAL EXAM: VITALS: Vitals are noted on the nurse's note and reviewed by myself. Vital signs stable. GENERAL: 36-year-old female, in no acute distress, nondiaphoretic, well- developed well-nourished. SKIN: The skin was without rashes, erythema, edema, or bruising. HEAD: Normocephalic atraumatic. MUSCULOSKELETAL: Full flexion of the right shoulder. Negative empty can test. Tenderness to palpation over the AC joint. Sensation over the deltoid is intact. No tenderness to palpation over the scapula. There is mild irritation over the mid thoracic lumbar spinous processes. Tenderness over the right paraspinous muscle in this area. Human Resources Officer strength is 5/5. Sensation and capillary refill intact in the fingers. Radial pulse +2. NEURO: Patient was alert and oriented to person place and time. Normal sensation to touch. No focal neurological deficits. EMERGENCY DEPARTMENT COURSE: The patient was seen and examined. Imaging of the right shoulder and thoracic spine were performed and as noted below IMPRESSION: No acute fracture or dislocation. The above report was generated using voice recognition software. It may contain grammatical, syntax or spelling errors. Electronically signed by: Mikey Hurley M.D. 08/19/2017 9:31 PM Dictated Date/Time: 08/19/2017 9:30 PM The status of this report is Signed. Draft = Not yet reviewed or approved by Radiologist. Signed = Reviewed and approved by Radiologist. IMPRESSION: No acute fracture or subluxation. The above report was generated using voice recognition software. It may contain grammatical, syntax or spelling errors. Electronically signed by: Mikey Hurley M.D. 08/19/2017 9:32 PM Dictated Date/Time: 08/19/2017 9:31 PM The status of this report is Signed. Draft = Not yet reviewed or approved by Radiologist. Signed = Reviewed and approved by Radiologist. The findings were discussed with the patient. She was given a right arm sling. Discharge instructions were reviewed, and she was discharged in good condition DIAGNOSIS: Shoulder sprain DISCHARGE INSTRUCTIONS & TREATMENT: Rest the arm in a sling until the pain subsides. Apply ice to the shoulder intermittently and frequently over the next 24 hours. Ibuprofen 800 mg and/or Tylenol 1000 mg every 8 hours. You may also alternate these medications for more effective pain relief: Ibuprofen --4 HRS--> Tylenol --4 HRS--> ibuprofen --4 HRS--> Tylenol .... See your own doctor/occupational health or an orthopedic surgeon if you don't seem to be improving in 4 - 5 days. This chart was completed in part utilizing [employer] Voice Recognition software. Attempts were made to minimize the grammatical errors, random word insertions, pronoun errors and incomplete sentences. Any formal questions or concerns about the content, text or information contained within the body of this dictation should be directly addressed to the provider for clarification.
--- NOTE | 2017-08-19 21:32 | DIAGNOSTIC IMAGING REPORT ---
R SHOULDER MIN 2 VIEWS ROUTINE HISTORY: 36 years-old Female R anterior shoulder pain acute right shoulder pain COMPARISON: Chest radiograph 04/03/2017 TECHNIQUE: 3 views of the right shoulder FINDINGS: Glenohumeral and AC joints appear unremarkable and located without acute fracture, dislocation or significant degenerative changes. Imaged lung bond are clear. No opaque foreign body. IMPRESSION: No acute fracture or dislocation. The above report was generated using voice recognition software. It may contain grammatical, syntax or spelling errors. Electronically signed by: Mikey Hurley M.D. 08/19/2017 9:31 PM Dictated Date/Time: 08/19/2017 9:30 PM
--- NOTE | 2017-08-19 21:34 | DIAGNOSTIC IMAGING REPORT ---
THORACIC SPINE 3 VIEWS ROUTINE HISTORY: 36 years-old Female pain over mid T spine acute mid back pain COMPARISON: Thoracic spine radiographs 05/14/2016 TECHNIQUE: Use of the thoracic spine FINDINGS: There are 12 rib-bearing thoracic-type vertebral segments present. No acute fracture, subluxation or significant degenerative changes identified. Upper thoracic segments are subvisualized on the lateral view secondary to the patient's shoulders. Imaged lung bond are clear. No acute rib fracture identified. IMPRESSION: No acute fracture or subluxation. The above report was generated using voice recognition software. It may contain grammatical, syntax or spelling errors. Electronically signed by: Mikey Hurley M.D. 08/19/2017 9:32 PM Dictated Date/Time: 08/19/2017 9:31 PM
[2017-08-19 21:48] VITALS: BP 132/91; PULSE 64; O2SAT 97
== END 2017-08-19 21:50 | disposition home or self-care (01) ==
LOC: C.EDB 19:57 → C.EDD 21:50
DX: S43.401A Unspecified sprain of right shoulder joint, initial encounter (principal); X50.0XXA Overexertion from strenuous movement or load, initial encounter

== ENCOUNTER → 2017-09-03 | Outpatient (CLI) | payer OTHER ==
[~2017-09-03] MED LIST changes: -IBUP-103 PO; +IBUP200C11 PO; -VNTHFA/IN PO; -VST25HP PO; -ZLF/50 PO
--- NOTE | 2017-09-03 13:32 | DIAGNOSTIC IMAGING REPORT ---
R UPPER EXT JOINT WITHOUT CLINICAL HISTORY: 36 years-old Female presenting with RT SHOULDER PAIN,LIMITED RANGE OF MOTION, injured at work 2 weeks ago, pain since injury. TECHNIQUE: Multisequence, multiplanar MR imaging of the right shoulder was performed without the use of intravenous contrast. IV contrast: None. COMPARISON: Plain radiographs from 08/19/2017. FINDINGS: Localizer images: Unremarkable. No bony edema. Articular cartilage grossly preserved. Increased signal intensity of the posterior labrum with minimal blunting without a focal tear, likely degenerative change. No other labral abnormality. The biceps labral complex is intact. Long head of the biceps tendon well seated within the intertubercular groove. Short head of the biceps tendon intact. Long head of the triceps tendon intact. Supraspinatus, infraspinatus, teres minor, and subscapularis tendons intact. The transverse ligament portion of the subscapularis is also intact. No significant joint effusion. No significant distention of the subacromial subdeltoid bursa. Acromioclavicular joint normal. IMPRESSION: 1. Degenerative changes of the posterior labrum suspected. Otherwise normal MR examination of the shoulder. Electronically signed by: Brandon Morales M.D. 09/03/2017 1:31 PM Dictated Date/Time: 09/03/2017 1:03 PM
== END | disposition home or self-care (01) ==
LOC: C.MRI 11:37
PROVIDERS: ATTEND Nurse Practitioner Family
DX: M25.511 Pain in right shoulder (principal)

== ENCOUNTER 2018-01-06 03:23 | Inpatient (IN) | payer BC, OTHER ==
[~2018-01-06] VITALS: Ht 152.4 cm; Wt 80.9 kg
[2018-01-06 04:04] LABS: BASO % 0.3 %; BASO ABS # 0.03 K/uL (0-0.2); EOS % 0.3 %; EOS ABS # 0.04 K/uL (0-0.5); HEMATOCRIT 38.5 % (37-47); HEMOGLOBIN 13.6 g/dL (12.0-16.0); IG# 0.09 K/uL (0.00-0.02); LYMPH % 18.5 %; LYMPH ABS # 2.14 K/uL (1.2-3.4); MEAN CELL VOLUME 87.5 fL (80-100); MEAN CORPUSCULAR HEMOGLOBIN 30.9 pg (25-34); MEAN CORPUSCULAR HGB CONC 35.3 g/dl (32-36); MEAN PLATELET VOLUME 10.1 fL (7.4-10.4); MONO % 5.6 %; MONO ABS # 0.65 K/uL (0.11-0.59); NEUT % 74.5 %; NEUT ABS # 8.63 K/uL (1.4-6.5); PLATELET COUNT 266 K/uL (130-400); RED CELL DISTRIBUTION WIDTH CV 12.5 % (11.5-14.5); RED CELL DISTRIBUTION WIDTH SD 40.1 fL (36.4-46.3); WHITE BLOOD COUNT 11.58 K/uL (4.8-10.8)
[2018-01-06] MEDS ORDERED: ACET-1311 PO (04:21)
[2018-01-06 04:31] LABS: ALBUMIN 4.1 gm/dl (3.4-5.0); CREATININE 0.88 mg/dl (0.60-1.20); POTASSIUM 3.6 mmol/L (3.5-5.1); TOTAL PROTEIN 7.5 gm/dl (6.4-8.2)
[2018-01-06] MEDS ORDERED: LORAZEPAM 0.5 MG TAB SL STA (04:47)
[2018-01-06] MEDS ORDERED: IBUPROFEN 800 MG TAB PO STA (05:47)
[2018-01-06] MEDS ORDERED: ACETAMINOPHEN 500 MG TAB PO STA (05:47)
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
[2018-01-06] MEDS ORDERED: NURSING VERBAL MED ORDER ONE (06:45)
[2018-01-06 06:54] VITALS: O2SAT 97
[2018-01-06] MEDS ORDERED: SODIUM CHLORIDE 0.65% NA SOLN 45 ML (OCEAN) PRN (07:00)
[2018-01-06] MEDS ORDERED: BISMUTH SUBSALICYLATE PER ML OMNICELL CHARGE PO PRN (07:00)
[2018-01-06] MEDS ORDERED: MAGNESIUM HYDROXIDE SUSP 30 ML UDC PO PRN (07:00)
[2018-01-06] MEDS ORDERED: hydrOXYzine HCL 25 MG TAB PO PRN (07:00)
[2018-01-06] MEDS ORDERED: ALUMINUM/MAGNESIUM SUSP 30 ML UDC PO PRN (07:00)
[2018-01-06 07:42] VITALS: BP 123/69; PULSE 88; TEMP 36.9; Ht 152.4 cm; Wt 80.9 kg
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
[2018-01-06] MEDS: IBUPROFEN 800 MG TAB PO PRN (13:50)
[2018-01-06] MEDS: hydrOXYzine HCL 25 MG TAB PO PRN (20:58)
[2018-01-07 06:53] VITALS: BP_SYST 112; BP_SYST 123; BP_DIAS 81; BP_DIAS 85; PULSE 68; PULSE 90; TEMP 36.4
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
[2018-01-07] MEDS: hydrOXYzine HCL 25 MG TAB PO PRN (23:05)
[2018-01-08 06:43] VITALS: BP_SYST 105; BP_SYST 108; BP_DIAS 72; BP_DIAS 74; PULSE 65; PULSE 81; TEMP 36.5
--- NOTE | 2018-01-08 10:29 | Psychiatric Progress Notes ---
Progress Note Date of Service Jan 08, 2018. Interval History Mary Lopez is a 37-year-old female admitted on Jan 06, 2018 at 06:43 who currently lives in [place], [place] with her boyfriend and his 2 children. Mary Lopez was admitted on a 201 voluntary commitment. Patient is admitted from home. The patient was brought to the ED by the self transport. Chief Complaint "I'm good.". Subjective Patient was seen & assessed interval progress reviewed with Treatment Team. The patient says that she is looking forward to a meeting with her boyfriend this afternoon. She hopes to talk about their communication style saying that she wants him to stop making her feel like everything is her fault. She knows that she needs to be more assertive with him and adopt new coping strategies like walking away when angry, rather than yelling at one another. She says that she is invested in the relationship, especially since they both have children, and his son has just started to call her mom. She recognizes that multiple events had piled up prior to admission to make her feel "like I just wanted to go away", including sending her daughter back to her father after a month's visit, arguing with her boyfriend, and her 18 yo daughter no longer communicating with her. She continues to refuse the offer of mood stabilizing agents, saying that they have never helped before or she has had side effects. She reports some difficulty sleeping last night, requiring prn vistaril. She denies SI Review of Systems Constitutional: No fever, No chills, No sweats, No weight loss, No weakness, No fatigue, No problem reported ENT: No hearing loss, No unusual epistaxis, No nasal symptoms, No sore throat, No tinnitus, No dental problems, No trouble swallowing, No problem reported Respiratory: No cough, No sputum, No wheezing, No shortness of breath, No dyspnea on exertion, No dyspnea at rest, No hemoptysis, No problem reported Cardiovascular: No chest pain, No orthopnea, No PND, No edema, No claudication , No palpitations, No problem reported Abdomen: No pain, No nausea, No vomiting, No diarrhea, No constipation, No GI bleeding, No problem reported Musculoskeletal: No joint pain, No muscle pain, No swelling, No calf pain, No problem reported Neurologic: No memory loss, No paralysis, No weakness, No numbness/tingling, No vertigo, No balance problems, No problem reported Psychiatric: + problem reported ("I feel good.") Integumentary: No rash, No itch, No new/changing skin lesions, No color change , No bleeding, No problem reported Sleep Information Total Hours of Sleep: 6.50 Meal Information Percent of Breakfast Consumed: 75 Percent of Lunch Consumed: 100 Percent of Dinner Consumed: 95 Mental Status Exam During interview pt is: alert and oriented, cooperative Appearance: appropriately dressed, appropriately groomed Eye contact is: good Motor behavior is: steady gait & station, no abnormal motor movements Speech: normal in rate, rhythm & volume Affect: euthymic Mood is: other ("I'm good.") Thought process: goal directed Thought content: reality based without delusions Suicidal thought are: denied Homicidal thoughts are: denied Hallucinations: denies auditory, denies visual Cognition: memory grossly intact, attention grossly intact, language grossly intact Intelligence estimated to be: consistent with level of education Insight: limited Judgement: limited Impression Adjusting well to the support and structure of the milieu. Will have a meeting with her boyfriend this afternoon to discuss their differences, but is hoping to be discharged soon after that as she would like to be back at work on . Denies SI and medications. If meeting goes well, could consider discharge as soon as tomorrow. Plan (1) Depression 01/06 - PRN hydroxyzine for acute anxiety, reviewed options for buspirone as well - Consider initiation of lamotrigine - Encourage development of healthy coping skills - Encourage participation in group and recreational therapies on the unit - Suggest involving outpatient support in family session - Obtain records from previous psychiatric providers 01/07 -Mood has rebounded quickly, does not appear to be in a depressive episode at this time, but we will continue to monitor. -Family meeting with boyfriend scheduled for tomorrow. -Explore alternative housing options if she opts to discontinue the relationship. Given information about the women's resource center. -Continue to see patient in unit groups and therapy, work on healthy coping skills and a discharge safety plan. -Refer for outpatient mental health treatment. 01/08 - Continues to refuse meds - Family meeting with boyfriend this afternoon Discharge / Aftercare Planning Primary Care Physician: Name: . Therapist: Name: [facility] - Intake with Vicky Durham Date of Appointment: Feb 01, 2018 Time of Appointment: 1:00 pm Appointment Notes: [address] [facility], KAYODE Alex23 Lofter: Name: none Visit Code E&M Code: 78884 Inventory Assets Strengths: willingness for treatment Needs: development of healthy coping strategies, determine housing options at discharge Risk Factors Assessment : Yes /single/: Yes Higher / Fall in social status: No Health problems: No Mental Health Diagnoses: Yes Substance use disorders: No Previous attempt: No Family history of suicide: Yes Previous psychiatric stay: Yes Hopelessness: Yes Smoker: No Protective Factors Assessment : No Responsible for young children: No Employed: Yes Stable relationships: No Data Vital Signs Last 24 Hrs: Date Time Temp Pulse Resp B/P (MAP) Pulse Ox O2 Delivery O2 Flow Rate FiO2 01/08/18 06:43 36.5 65 16 108/74 81 105/72 Meds Administered Last 24 Hrs: Meds Administered (Past 24Hrs) Medications (Trade) Dose Ordered Sig/Van Route Start Time Stop Time Status Last Admin Dose Admin Ibuprofen (Motrin Tab) 800 mg TID PRN PO 01/06/18 13:30 02/05/18 13:29 01/06/18 13:50 800 MG Lab Results Last 24 Hrs: 01/06/18 03:49 Red Blood Count 4.40, Mean Corpuscular Volume 87.5, Mean Corpuscular Hemoglobin 30.9, Mean Corpuscular Hemoglobin Concent 35.3, Mean Platelet Volume 10.1, Neutrophils (%) (Auto) 74.5, Lymphocytes (%) (Auto) 18.5, Monocytes (%) (Auto) 5.6, Eosinophils (%) (Auto) 0.3, Basophils (%) (Auto) 0.3, Neutrophils # (Auto) 8.63, Lymphocytes # (Auto) 2.14, Monocytes # (Auto) 0.65, Eosinophils # (Auto) 0.04, Basophils # (Auto) 0.03 01/06/18 03:49 Test 01/06/18 03:35 01/06/18 03:39 01/06/18 03:49 Urine Color YELLOW Urine Appearance CLOUDY (CLEAR) Urine pH 5.0 (4.5-7.5) Urine Specific [place] 1.024 (1.000-1.030) Urine Protein TRACE (NEG) Urine Glucose (UA) NEG (NEG) Urine Ketones NEG (NEG) Urine Occult Blood TRACE (NEG) Urine Nitrite NEG (NEG) Urine Bilirubin NEG (NEG) Urine Urobilinogen NEG (NEG) Urine Leukocyte Esterase NEG (NEG) Urine WBC (Auto) 5-10 /hpf (0-5) Urine RBC (Auto) 0-4 /hpf (0-4) Urine Hyaline Casts (Auto) 1-5 /lpf (0-5) Urine Epithelial Cells (Auto) >30 /lpf (0-5) Urine Bacteria (Auto) 1+ (NEG) Urine Opiates Screen NEG (NEG) Urine Methadone, Qualitative NEG (NEG) Urine Barbiturates NEG (NEG) Urine Phencyclidine (PCP) Level NEG (NEG) Ur Amphetamine/Methamphetamine NEG (NEG) MDMA (Ecstasy) Screen NEG (NEG) Urine Benzodiazepines Screen NEG (NEG) Urine Cocaine Metabolite NEG (NEG) Urine Marijuana (THC) NEG (NEG) Urine Test NEG (NEG) White Blood Count 11.58 K/uL (4.8-10.8) Red Blood Count 4.40 M/uL (4.2-5.4) Hemoglobin 13.6 g/dL (12.0-16.0) Hematocrit 38.5 % (37-47) Mean Corpuscular Volume 87.5 fL (80-100) Mean Corpuscular Hemoglobin 30.9 pg (25-34) Mean Corpuscular Hemoglobin Concent 35.3 g/dl (32-36) Platelet Count 266 K/uL (130-400) Mean Platelet Volume 10.1 fL (7.4-10.4) Neutrophils (%) (Auto) 74.5 % Lymphocytes (%) (Auto) 18.5 % Monocytes (%) (Auto) 5.6 % Eosinophils (%) (Auto) 0.3 % Basophils (%) (Auto) 0.3 % Neutrophils # (Auto) 8.63 K/uL (1.4-6.5) Lymphocytes # (Auto) 2.14 K/uL (1.2-3.4) Monocytes # (Auto) 0.65 K/uL (0.11-0.59) Eosinophils # (Auto) 0.04 K/uL (0-0.5) Basophils # (Auto) 0.03 K/uL (0-0.2) RDW Standard Deviation 40.1 fL (36.4-46.3) RDW Coefficient of Variation 12.5 % (11.5-14.5) Immature Granulocyte % (Auto) 0.8 % Immature Granulocyte # (Auto) 0.09 K/uL (0.00-0.02) Anion Gap 7.0 mmol/L (3-11) Est Creatinine Clear Calc Drug Dose 115.8 ml/min Estimated GFR () 98.0 Estimated GFR (Non- 84.5 BUN/Creatinine Ratio 19.0 (10-20) Calcium Level 9.0 mg/dl (8.5-10.1) Total Bilirubin 0.4 mg/dl (0.2-1) Aspartate Amino Transf (AST/SGOT) 12 U/L (15-37) Alanine Aminotransferase (ALT/SGPT) 22 U/L (12-78) Alkaline Phosphatase 56 U/L (45-117) Total Protein 7.5 gm/dl (6.4-8.2) Albumin 4.1 gm/dl (3.4-5.0) Globulin 3.4 gm/dl (2.5-4.0) Albumin/Globulin Ratio 1.2 (0.9-2) Thyroid Stimulating Hormone (TSH) 3.610 uIu/ml (0.300-4.500) Salicylates Level < 1.7 mg/dl (2.8-20) Acetaminophen Level < 2 ug/ml (10-30) Ethyl Alcohol mg/dL < 3.0 mg/dl (0-3) Date/Time Source Procedure Growth Status 01/06/18 03:35 Urine , Clean Catch Urine Culture - Final MORE THAN THREE TYPES OF ORGANISMS MI... Complete
[2018-01-08] MEDS: ACETAMINOPHEN 325 MG TAB PO PRN (22:16)
[2018-01-08] MEDS: hydrOXYzine HCL 25 MG TAB PO PRN (23:32)
[2018-01-08] MEDS: IBUPROFEN 800 MG TAB PO PRN (23:33)
[2018-01-09 06:54] VITALS: BP_SYST 114; BP_SYST 116; BP_DIAS 80; BP_DIAS 82; PULSE 69; PULSE 86; TEMP 36.6
[2018-01-09] MEDS ORDERED: ATR25 PO (08:50)
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
[2018-01-09] MEDS: ACETAMINOPHEN 325 MG TAB PO PRN (09:44)
== END 2018-01-09 13:05 | disposition home or self-care (01) | DRG 881 ==
LOC: C.EDB 03:24 → C.MHU 06:43
PROVIDERS: ADMIT Psychiatry & Neurology Child & Adolescent Psychiatry; ATTEND Psychiatry & Neurology Child & Adolescent Psychiatry
DX: F32.9 Major depressive disorder, single episode, unspecified (principal); R45.851 Suicidal ideations; Z87.891 Personal history of nicotine dependence; Z88.5 Allergy status to narcotic agent; Z91.030 Bee allergy status; Z81.8 Family history of other mental and behavioral disorders; Z81.1 Family history of alcohol abuse and dependence; Z81.3 Family history of other psychoactive substance abuse and dependence